=== PATIENT | female | born 1975 | race Caucasian/White ===

== ENCOUNTER 2017-03-13 18:21 | Inpatient (IN) | payer OTHER ==
[~2017-03-13] VITALS: Ht 182.9 cm; Wt 115.7 kg
--- NOTE | ~2017-03-13 | DS ---
Unit #: [id number] #: [id number] Patient: CLAYTON WOLFF [id number] [facility] [address] [place] [address] [id number] I MR#: [id number] NAME: CLAYTON WOLFF ROOM: [facility]5 Age: 41 Sex: F Admission Date: 03/13/2017 : 1975 Discharge Date: 03/17/2017 Attending Physician: Angel Mandujano M.D. Primary Care Physician: Nancy Davis A.P.R.N. DISCHARGE SUMMARY REASON FOR ADMISSION The patient is a 41-year-old white female admitted to the [address] [place] [address] unit with increasing psychotic thinking and depression. HOSPITAL COURSE The patient is admitted to the [address] [place] [address] unit and placed on suicide precautions. Her previous dose of Risperdal was increased to 1 mg q.a.m. and 2 mg at h.s. given psychotic symptoms reported at the time of admission. The patient responded rapidly to this medication reporting improved sleep and reduction in psychotic thinking. By 03/17, the patient was in bright spirits and agreeable with plan for follow up through the auspices of [facility]. As per her request, discharge was ordered. FINAL DIAGNOSES 1. Major depressive disorder, severe, recurrent with psychotic features. 2. Diabetes mellitus. FOLLOWUP CARE Followup to take place through the auspices of [facility]. DISCHARGE MEDICATIONS The patient is discharged on the following medications: 1. Naprosyn 500 mg b.i.d. for pain. 2. Robaxin 500 mg b.i.d. for muscle relaxation. 3. Effexor XR 225 mg daily for depression. 4. Topamax 200 mg b.i.d. for migraine headache. 5. Risperdal 1 mg q.a.m., 2 mg at h.s. for psychosis. 6. Levemir 12 units at bedtime for diabetic management. 7. NovoLog sliding scale for diabetic management. PROGNOSIS Considered fair. DIET AND ACTIVITY No dietary or physical restrictions were placed on the patient at time of discharge. Unit #: [id number] #: [id number] Patient: CLAYTON WOLFF Dictated by... Angel Mandujano M.D. QUAN/gale TD: 03/18/2017 20:05 JOB #: [id number] DISCHARGE SUMMARY Page 1 of 1 X Angel Mandujano MD DISCHARGE SUMMARY
--- NOTE | ~2017-03-13 | PA ---
Unit #: [id number] #: [id number] Patient: CLAYTON WOLFF [id number] [facility] [address] [place] [address] [id number] I MR#: [id number] NAME: CLAYTON WOLFF ROOM: [facility]5 Age: 41 Sex: F Admission Date: 03/13/2017 : 1975 Date of Assessment: 03/14/2017 Attending Physician: Angel Mandujano M.D. Admitting Physician: Angel Mandujano M.D. Primary Care Physician: Nancy Davis A.P.R.N. PSYCHIATRIC ASSESSMENT IDENTIFYING INFORMATION The patient is a 41-year-old white female admitted to the [facility] Unit with worsening symptoms of paranoia and depression. CHIEF COMPLAINT None given. INFORMANT(S) Patient, reliability good. HISTORY OF PRESENT ILLNESS The patient is a 41-year-old white female admitted to the [facility] Unit reporting increasing paranoia and depressed mood. The patient reports that she has been fearful that a "black shadow" is following her. She is fearful that her daughter's boyfriend has "put a spell on her." The patient attempted suicide a few years ago after the of her but was not psychiatrically hospitalized. She is currently prescribed medications under the care of her primary care physician for depression and psychosis. These include Risperdal, Effexor, and Topamax. The patient complains of bad dreams as well as ongoing paranoia. She complains of depressed mood but is currently denying any suicidal ideation. She does, as noted previously, have a history of one previous suicide attempt. PAST PSYCHIATRIC HISTORY As above. The patient has never been psychiatrically hospitalized per her report. PAST MEDICAL HISTORY The patient suffers from chronic pain and migraine headache. MEDICATIONS Topamax, Effexor XR, Robaxin, Naprosyn, and Risperdal. ALLERGIES Codeine. FAMILY HISTORY Noncontributory. SOCIAL HISTORY The patient lives with her and daughter. She does not work outside the home. She reports no use of alcohol, tobacco, or street drugs. Unit #: [id number] #: [id number] Patient: CLAYTON WOLFF MENTAL STATUS EXAMINATION Examination at this time reveals the patient to be a slightly obese white female appearing stated age. She is in no apparent physical distress at the time of the examination. She is awake, alert, and oriented in all spheres. Her mood is dysphoric, her affect blunted. Speech is generally well-coherent. There are no gross deficits in memory or cognition noted. Intelligence is judged to be in the average range based on fund of knowledge. The patient is cooperative throughout the interview. She is currently denying suicidal or homicidal ideation. She does report positive delusional thinking including the belief that her daughter's boyfriend has "put a hex on her." Her judgment and insight appear to be significantly impaired. No signs of tardive dyskinesia are in evidence. ASSETS AND LIABILITIES The patient's assets: Motivation for change, supportive family. Liabilities: None noted. DIAGNOSTIC IMPRESSION Major depressive disorder, severe, recurrent, with psychotic features. TREATMENT PLAN We will continue the patient's previously prescribed medications increasing Risperdal to 3 mg daily. Further upward titration of that medication may take place, and consideration may be given to substitution of a different second-generation antipsychotic specifically Abilify or Risperdal in hopes that that medication would also positively affect the patient's mood symptoms. ESTIMATED LENGTH OF STAY 5 to 7 days. Dictated by... Angel Mandujano M.D. Kay TD: 03/14/2017 14:29 JOB #: [id number] PSYCHIATRIC ASSESSMENT Page 1 of 1 X Agnel Mandujano MD X PSYCHIATRIC ASSESSMENT
--- NOTE | ~2017-03-13 | PN ---
Unit #: [id number] #: [id number] Patient: CLAYTON WOLFF [id number] [facility] [address] [place] [address] [id number] I MR#: [id number] NAME: CLAYTON WOLFF ROOM: [facility]5 Age: 41 Sex: F Admission Date: 03/13/2017 : 1975 Attending Physician: Angel Mandujano M.D. Admitting Physician: Angel Mandujano M.D. Primary Care Physician: Payam Asif PROGRESS NOTES DATE 03/15/2017 DISCUSSION The patient has tolerated upward titration of Risperdal without complaint and is reporting some reduction in paranoid thinking stating that she has not been giving much thought to the "spell" which she had alleged that has been placed on her by her daughter's boyfriend. She is seclusive to room, and I have encouraged her to increase her participation within the therapeutic milieu. Dictated by... Angel Mandujano M.D. CB/renato TD: 03/15/2017 13:19 JOB #: [id number] [facility] PROGRESS NOTES Page 1 of 1 X Angel Mandujano MD X PROGRESS NOTE
--- NOTE | ~2017-03-13 | PN ---
Unit #: [id number] #: [id number] Patient: CLAYTON WOLFF [id number] [facility] [address] [place] [address] [id number] MR#: [id number] NAME: CLAYTON WOLFF ROOM: P255 Age: 41 Sex: F Admission Date: 03/13/2017 : 1975 Attending Physician: Angel Mandujano M.D. Admitting Physician: Angel Mandujano M.D. Primary Care Physician: Payam Asif PROGRESS NOTES DATE 03/16/2017 DISCUSSION The patient seems brighter. She is out of her room and more active within the therapeutic milieu. She was reporting reduction in paranoid thinking with increased medication. Should she sustain progress, discharge should take place as early as tomorrow. Dictated by... Angel Mandujano M.D. CB/bzg TD: 03/16/2017 14:00 JOB #: [id number] [facility] PROGRESS NOTES Page 1 of 1 X Angel Mandujano MD X PROGRESS NOTE
--- NOTE | ~2017-03-13 | HP ---
Unit #: [id number] #: [id number] Patient: NADIA WOLFF [id number] [facility] [address] [place] [address] [id number] MR#: [id number] NAME: NADIA WOLFF ROOM: [facility]255 Age: 41 Sex: F Admission Date: 03/13/2017 : 1975 Attending Physician: Angel Mandujano M.D. Admitting Physician: Angel Mandujano M.D. Primary Care Physician: Nancy Davis A.P.R.N. HISTORY AND PHYSICAL HISTORY OF PRESENT ILLNESS Nadia is a 41 year old admitted to 2 [facility] with psychotic behavior. She reports that she sees a dark shadowy man chasing her. PAST MEDICAL HISTORY 1. Morbid obesity. 2. Seizure disorder. Last seizure 2 weeks ago. 3. Diabetes mellitus. 4. Hepatitis C. 5. History of illicit drug use to include IV heroin and methamphetamine. PAST SURGICAL HISTORY 1. Umbilical hernia repair. 2. Hysterectomy. 3. x1. 4. Cholecystectomy. ALLERGIES Codeine. SOCIAL HISTORY Smokes, drinks alcohol and uses marijuana on occasion. Has a history of other illicit drug use to include IV heroin and methamphetamine. FAMILY HISTORY Medically noncontributory. REVIEW OF SYSTEMS CONSTITUTIONAL: No fever or chills. HEENT: Denies any sore throat, ear pain or runny nose. CARDIOVASCULAR: Denies chest pain, irregular heart rhythm or palpitations. CHEST: Denies shortness of breath or cough. No hemoptysis. GASTROINTESTINAL: Denies nausea, vomiting, diarrhea or chronic constipation. ENDOCRINE: Denies history of increased thirst or urination. No recent significant weight loss or gain. GENITOURINARY: Denies dysuria, frequency, or hematuria. SKIN: Denies any rashes. HEMATOLOGIC: Denies history of increased bleeding or bruising. MUSCULOSKELETAL: Denies any hot, swollen joints. No generalized muscle pain. NEUROLOGIC: Denies problems with vision or speech. No frequent, severe headaches. No numbness, tingling or weakness in any extremities. Denies Unit #: [id number] #: [id number] Patient: NADIA WOLFF loss of bladder or bowel control. CURRENT MEDICATIONS 1. Risperdal 1 mg q.a.m., 2 mg q.h.s. 2. Topamax 200 mg b.i.d. 3. Methocarbamol 500 mg b.i.d. 4. Naproxen 500 mg b.i.d. 5. Effexor 225 mg q.a.m. 6. Milk of Magnesia p.r.n. 7. Maalox p.r.n. 8. Tylenol p.r.n. PHYSICAL EXAMINATION GENERAL: Alert, obese, in no apparent distress. VITAL SIGNS: Blood pressure 146/80, heart rate 66, respirations 16, temperature 98.6. WEIGHT: 255. HEIGHT: 6 feet 0 inches. SKIN: Warm and dry without rash or lesion. HEENT: Normocephalic. TMs not viewed. Oral and nasal passages clear. Conjunctivae clear. PERRLA. EOMs intact. NECK: Supple without lymphadenopathy or thyromegaly. HEART: Regular rate and rhythm without murmur. LUNGS: Clear. ABDOMEN: Soft, nontender. : Not done. EXTREMITIES: No evidence of cyanosis, clubbing or edema. Moves all without focal deficit. NEUROLOGICAL: Grossly within normal limits. Cranial Nerves: II: Visual vidal are intact. III, IV AND : Extraocular movements are intact. Pupils are equal, round and reactive to light. V: Facial sensation is grossly normal. VII: Facial movements and expression are normal. VIII: Auditory acuity grossly intact. IX, X: Uvula is midline. Phonation is normal. XI: Patient shrugs shoulders and turns head normally. XII: Tongue protrudes in the midline. Sensory and Motor Function: Sensory and motor sensation is grossly normal. Motor: moves all extremities well. Coordination: Gait is normal. Deep Tendon Reflexes: Intact. IMPRESSION 1. Psychiatric admission. 2. Diabetes mellitus, she is admitted on no medications. 3. Seizure disorder. 4. Hepatitis C. 5. Morbid obesity. 6. History of illicit drug use. RECOMMENDATIONS PSYCHIATRIC: Per psychiatrist. MEDICAL: 1. See no contraindication to participate in facility's activities. 2. Start Levemir 12 units q.h.s. Monitor Accu-Cheks a.c. and h.s. Start routine sliding scale. Constant carb diet. MEDICAL PROGNOSIS Good. Unit #: [id number] #: [id number] Patient: NADIA WOLFF MEDICAL CONDITION Stable. Dictated by... Heena Boyd P.A.-C. for Margaret Lees/gale TD: 03/14/2017 15:44 JOB #: [id number] HISTORY AND PHYSICAL Page 1 of 1 X Heena Boyd X HISTORY AND PHYSICAL
[~2017-03-13 18:21] MED LIST: BUPROPION XL300 MG PO; TOPAMAX200 MG
[2017-03-15 12:23] LABS: BASOPHIL% 0.9 % (0-2.5); EOSINOPHIL# 0.1 X10e3 (0-0.7); HEMATOCRIT 34.3 % (35.0-45.0); HEMOGLOBIN 11.9 gm/dL (12.0-16.0); LYMPHOCYTE# 2.4 X10e3 (1.0-3.5); LYMPHOCYTE% 48.5 % (17.0-45.0); MEAN CELL VOLUME 90.5 FL (83-96); MEAN CORPUSCULAR HEMOGLOBIN 31.5 PG (28-34); MEAN CORPUSCULAR HGB CONC 34.8 g/dL (30-36); MEAN PLATELET VOLUME 6.9 FL (6.5-11.5); MONOCYTE# 0.4 X10e3 (0-1.0); MONOCYTE% 8.2 % (3.0-12.0); NEUTROPHIL# 1.9 X10e3 (1.5-7.1); NEUTROPHIL% 39.4 % (40-75); PLATELET COUNT 166 X10e3 (140-420); RED BLOOD COUNT 3.79 X10e (3.90-5.30); RED CELL DISTRIBUTION WIDTH 13.3 % (11.0-15.5); WHITE BLOOD COUNT 4.8 X10e3 (4.0-10.5)
[2017-03-15 12:29] LABS: DIFF IND NO
[2017-03-15 12:37] LABS: ALBUMIN SERUM 3.2 g/dL (3.5-5.0); BILIRUBIN,TOTAL 0.4 mg/dL (0.2-2.0); BUN/CREATININE RATIO 11.11; CALCIUM SERUM 8.9 mg/dL (8.4-10.2); CREATININE SERUM 0.9 mg/dL (0.6-1.4); GLOM FILT RATE Estimated 78.4 mL/min (>60); POTASSIUM 3.9 mmol/L (3.5-5.1)
[2017-03-16 10:10] LABS: URINE APPEARANCE CLEAR; URINE BILIRUBIN NEG (NEG); URINE BLOOD NEG (NEG); URINE COLOR YELLOW; URINE GLUCOSE NEG (NEG); URINE KETONE NEG (NEG); URINE LEUKOCYTE ESTERASE NEG (NEG); URINE NITRATE NEG (NEG); URINE PROTEIN NEG (NEG); URINE SPECIFIC GRAVITY 1.006 (1.003-1.035); URINE UROBILINOGEN 0.2 MG/DL (NEG)
[2017-03-16 10:51] LABS: AMPHETAMINE NEG (NEG); BARBITURATES NEG (NEG); BENZODIAZEPINES NEG (NEG); COCAINE NEG (NEG); MARIJUANA NEG (NEG); OPIATES NEG (NEG); TRICYCLIC ANTIDEPRESSANTS NEG (NEG); U METHADONE NEG (NEG)
== END 2017-03-17 16:00 | disposition home or self-care (01) | DRG 885 ==
LOC: P2L 22:46
PROVIDERS: Specialist
DX: F33.3 Major depressive disorder, recurrent, severe with psychotic symptoms (principal); E66.01 Morbid (severe) obesity due to excess calories; E11.9 Type 2 diabetes mellitus without complications; G40.909 Epilepsy, unspecified, not intractable, without status epilepticus; B19.20 Unspecified viral hepatitis C without hepatic coma; Z88.5 Allergy status to narcotic agent; F17.210 Nicotine dependence, cigarettes, uncomplicated; F12.10 Cannabis abuse, uncomplicated
CPT/HCPCS: 80053; 80307; 81003; 82947; 85025